=== PATIENT | male | born 1960 | race Caucasian/White ===

== ENCOUNTER → 2016-06-02 | Outpatient (CLI) | payer OTHER ==
[~2016-06-02] MED LIST: NAPR1TAB9 PO; TRAM-10 PO; ZOLP10TA PO
[2016-06-02 09:51] LABS: BASO ABS # 0.06 K/uL (0-0.2); COMPLETE YES; EOS % 5.8 %; HEMATOCRIT 41.7 % (42-52); IG% 0.2 %; LYMPH % 39.2 %; MEAN CELL VOLUME 86.7 fL (80-100); MEAN CORPUSCULAR HEMOGLOBIN 29.7 pg (25-34); MEAN CORPUSCULAR HGB CONC 34.3 g/dl (32-36); MEAN PLATELET VOLUME 10.6 fL (7.4-10.4); MONO % 6.8 %; PLATELET COUNT 194 K/uL (130-400); RED BLOOD COUNT 4.81 M/uL (4.7-6.1); WHITE BLOOD COUNT 5.87 K/uL (4.8-10.8)
[2016-06-02 10:21] LABS: BLOOD UREA NITROGEN 17 mg/dl (7-18); BUN/CREATININE RATIO 16.7 (10-20); CALCIUM 8.9 mg/dl (8.5-10.1); CARBON DIOXIDE 28 mmol/L (21-32); CHLORIDE 108 mmol/L (98-107); GLUCOSE 84 mg/dl (70-99); POTASSIUM 4.2 mmol/L (3.5-5.1); SODIUM 143 mmol/L (136-145)
== END | disposition home or self-care (01) ==
LOC: C.CPL 08:25
PROVIDERS: ATTEND Physical Medicine & Rehabilitation Sports Medicine
DX: Z01.810 Encounter for preprocedural cardiovascular examination (principal); Z01.812 Encounter for preprocedural laboratory examination; M24.022 Loose body in left elbow; M19.022 Primary osteoarthritis, left elbow

== ENCOUNTER → 2016-06-03 | Day surgery (SDC) | payer OTHER ==
[2016-06-02 11:22] VITALS: Ht 175.3 cm; Wt 95.5 kg
[~2016-06-03] VITALS: Ht 175.3 cm; Wt 95.5 kg
[~2016-06-03] MED LIST changes: +ATROPINE SULFATE 0.1 MG/ML 5ML SYR IV PRN; +BUPIVACAINE 0.5 % 5 MG/1 ML MPF 30ML VIAL ONE; +CEFAZOLIN 2000 MG/60 ML D5W IV SCH; +DEXAMETHASONE SOD INJ 4 MG/ML VIAL ONE; +EpHEDrine SULFATE 50MG/5ML SYR ONE; +EpHEDrine SULFATE INJ 50 MG/ML AMP IV PRN; +FENTANYL CITRATE INJ 50 MCG/1 ML 2 ML VIAL IV PRN; +FENTANYL CITRATE INJ 50 MCG/1 ML 2 ML VIAL ONE; +GLYCOPYRROLATE INJ 0.2 MG/ML VIAL ONE; +KETOROLAC TROMETHAMINE 30 MG/ML VIAL ONE; +LACTATED RINGER'S 1000ML 1,000 ML IV SCH; +LIDOCAINE HCL 2% 2 ML VIAL (20MG/ML) ONE; +MIDAZOLAM HCL 1 MG/ML 2ML VIAL ONE; +ONDANSETRON INJ 2 MG/ML 2 ML VIAL IV PRN; +ONDANSETRON INJ 2 MG/ML 2 ML VIAL ONE; +OXYCODONE/ACETAMINOPHEN 5-325 TAB PO PRN; +PROPOFOL IV EMULSION 10 MG/ML 20 ML VIAL IV ONE; +SODIUM CHLORIDE 0.9% 1000ML 1,000 ML IV SCH
--- NOTE | 2016-06-03 07:53 | History & Physical Bridge Note ---
H&P Re-Evaluation Bridge Note: I have examined the patient, reviewed the History & Physical and in the interval since the performance of the History & Physical I have noted the following changes of clinical significance: No changes noted
--- NOTE | 2016-06-03 07:55 | Discharge Instructions ---
Discharge Instructions Visit Reason for Visit: Left [place] Degnerative Joint Disease Discharge Discharge Diagnosis / Problem: same Discharge Goals Goal(s): Decrease discomfort, Improve function, Increase independence, Improve disease control Medications Stopped Medications Name(s): na Restart Stopped Medication(s): use all scripts as directed Activity Recommendations Activity Limitations: as noted below Lifting Limitations: until after follow-up appointment Exercise/Sports Limitations: until after follow-up appointment May Resume Sexual Activity: after follow-up appointment Shower/Bathe: keep incision dry Driving or Machine Use: no limitations Anesthesia DIET: * Resume previous diet. MEDICATIONS: * Please take your prescriptions as instructed at your pre-op appointment and/ or see medication discharge instructions listed above. * If concerns develop, call your physician's office at . SPECIAL CARE INSTRUCTIONS: * Ice/Elevate as instructed. * Keep dressing clean, dry, intact. * Your surgical extremity may be discolored due to prepping agents used on the skin. A bluish-green tint is a normal variant and should not cause alarm. Call your doctor at [phone] if: * Temperature above 101 degrees * Pain not relieved by pain medicine ordered * There is increased drainage or redness from any incision * You have any unanswered questions, problems or concerns. FOLLOW UP VISIT: * If not already scheduled, please call the office at to schedule a follow-up appointment. . Post Anesthesia Instructions: If you have had General Anesthesia or IV Sedation: * Do not drive today. * Resume driving when surgeon permits. * Do not make important decisions or sign legal documents today. * Call surgeon for: 1. Temperature elevations greater than 101 degrees F. 2. Uncontrollable pain. 3. Excessive bleeding. 4. Persistent nausea and vomiting. 5. Medication intolerance (nausea, vomiting or rash). * For nausea and vomiting use only clear liquids such as: tea, soda, bouillon until nausea subsides, then gradually increase diet as tolerated. * If you have any concerns or questions, call your surgeon's office. If physician is unavailable and it is an emergency, call 911 or go to the nearest emergency room. . Diet Recommendations Recommended Home Diet: resume previous diet Procedures Procedures Performed: arthrotomy debridement left elbow Pending Studies Studies pending at discharge: no Medical Emergencies . Who to Call and When: Medical Emergencies: If at any time you feel your situation is an emergency, please call 911 immediately. . Non-Emergent Contact Non-Emergency issues call your: Specialist Call Non-Emergent contact if: temperature is above 101.5 . . "Provider Documentation" section prepared by Taye Mckeon.
[2016-06-03] MEDS: HYDROmorphone INJ 1 MG/ML SYR IV PRN ×4 (10:25→10:51)
--- NOTE | 2016-06-03 10:33 | OPERATIVE REPORT ---
DATE OF OPERATION: 06/03/2016 PREOPERATIVE DIAGNOSIS: Left elbow degenerative joint disease. POSTOPERATIVE DIAGNOSIS: Left elbow same. PROCEDURE: Left elbow arthrotomy with debridement and loose body removal. SURGEON: Dr. Mckeon. FISCAL ASSISTANT: Ortega Salgado PA-C. HISTORY OF PRESENT ILLNESS: This 55-year-old white male presented to the office with complaints of left elbow loss of motion and pain with motion. He had tried conservative care measures without success. He elected to proceed with surgical intervention after being educated about potential risks and outcomes. Preoperative x-rays were obtained. DESCRIPTION OF PROCEDURE: The patient was taken to the operating room where he was given general anesthetic. He was prepped and draped in the usual sterile fashion. Please see Dr. Mckeon's operative report for specifics of the procedure. I was present for the entire case from initial patient positioning through final wound closure. Assistance was provided in tissue retraction, hemostasis, and final wound closure. The patient was taken to the recovery room in satisfactory condition. I attest to the content of the Intraoperative Record and any orders documented therein. Any exceptio ns are noted below.
[2016-06-03 11:16] VITALS: TEMP 36.4
--- NOTE | 2016-06-03 11:19 | OPERATIVE REPORT ---
DATE OF OPERATION: 06/03/2016 PREOPERATIVE DIAGNOSIS: Extensive periarticular osteophytes, osteoarthritis and loose bodies left elbow with flexion and extension contracture and supination and pronation contracture. POSTOPERATIVE DIAGNOSIS: Same. OPERATION PERFORMED: Extensive lateral exposure of the elbow with excision of marginal osteophytes anteriorly and posteriorly on the humerus on the capitellum and on the olecranon as well as removal of multiple loose bodies. SURGEON: Dr. Mckeon. ACCOUNTING MACHINE OPERATOR: Ortega Salgado PA-C. SECOND ACCOUNTING MACHINE OPERATOR: kimberly Hanson student. PERIOPERATIVE SITUATION: Medically cleared male with intractable elbow discomfort. At this point in time wants to proceed with surgical treatment based on x-ray findings of multiple loose bodies, periarticular osteophytes and loss of range of motion. OPERATION AND FINDINGS: PROCEDURE: The patient was properly identified, site verified, consent verified, 2 grams of Ancef confirmed as being given. The left upper extremity was examined revealing extension to -30, flexion to 105, pronation, supination 50/50. The arm was then prepped and draped in usual routine fashion. Tourniquet inflated to 250 mmHg and the extensile lateral approach to the elbow made. The layers were carefully dissected and the joint opened. There was an exuberant amount of joint fluid. This was all evacuated. Medially encountered was a loose body, which was removed. The capsule was opened down to the radial neck, but not distal to that and anteriorly dissected across and released off the anterior aspect of the humerus. A large osteophyte was there and then resected in multiple pieces. Care taken not to penetrate medially. Periarticular osteophytes were then excised along the radial capitellar joint, capitellum and off the olecranon capitellar and olecranon humeral fossa joint. All that was removed. There was 3 large loose bodies removed from the olecranon fossa as well. Once this was all done, the elbow range of motion was near 0, 125 degrees of flexion and near full pronation supination. The wound was then irrigated. A 2.9 JuggerKnot was then placed in the isometric point of the lateral epicondyle and the capsular ligamentous structures were repaired as 1 unit with double suture off the JuggerKnot 2.9 anchor. The superficial fascia was then closed with a running 0 Vicryl, the subcutaneous layer with 2-0 plain and the skin with brennan. Appropriate dressing applied and the patient transferred to recovery room in satisfactory condition having tolerated the procedure well. Estimated blood loss was 5 mL. Crystalloid was roughly 500 mL. Start aggressive range of motion. I attest to the content of the Intraoperative Record and any orders documented therein. Any exceptio ns are noted below.
[2016-06-03 12:06] VITALS: BP 132/81; PULSE 59; O2SAT 96
--- NOTE | 2016-06-03 12:14 | Anesthesia Progress Nt - [facility] ---
Anesthesia Post Op Note Date & Time Jun 03, 2016 at 12:14 Vital Signs Pain Intensity: 7 Vital Signs Past 12 Hours Date Time Temp Pulse Resp B/P Pulse Ox O2 Delivery O2 Flow Rate FiO2 06/03/16 12:06 59 16 132/81 96 Room Air 06/03/16 11:30 70 18 135/91 95 Room Air 06/03/16 11:19 86 14 06/03/16 11:19 90 14 93 06/03/16 11:18 135/104 06/03/16 11:16 36.4 55 12 140/94 99 Room Air 06/03/16 11:14 71 13 06/03/16 11:14 72 13 96 06/03/16 11:13 140/94 06/03/16 11:11 140/91 06/03/16 11:09 55 18 141/102 100 06/03/16 11:09 61 18 06/03/16 11:04 52 7 06/03/16 11:04 50 7 100 06/03/16 11:03 136/95 06/03/16 10:59 58 9 100 06/03/16 10:59 57 9 06/03/16 10:58 134/99 06/03/16 10:54 60 15 06/03/16 10:54 57 15 100 06/03/16 10:53 136/86 06/03/16 10:49 66 13 06/03/16 10:49 64 13 141/86 100 06/03/16 10:44 71 20 100 06/03/16 10:44 70 20 06/03/16 10:43 128/93 06/03/16 10:39 66 14 06/03/16 10:39 68 14 100 06/03/16 10:38 122/101 06/03/16 10:34 80 14 06/03/16 10:34 81 14 136/93 98 06/03/16 10:29 65 14 100 06/03/16 10:29 68 14 06/03/16 10:28 134/100 06/03/16 10:24 72 10 06/03/16 10:24 67 10 120/93 99 06/03/16 10:19 36.4 74 16 116/84 99 Diffusion Mask 6 06/03/16 10:19 70 15 135/79 06/03/16 10:19 15 06/03/16 07:40 36.4 73 18 130/103 96 Room Air Notes Mental Status: alert / awake / arousable, participated in evaluation Pt Amnestic to Procedure: Yes Nausea / Vomiting: adequately controlled Pain: adequately controlled, improving with treatment Airway Patency, RR, SpO2: stable & adequate BP & HR: stable & adequate Hydration State: stable & adequate Anesthetic Complications: no major complications apparent Patient stated he fells well enough and wants to go home. He was out of chair and ambulating without difficulty. They have been informed about proper use of his pain medications and will call with any questions or concerns.
== END | disposition home or self-care (01) ==
LOC: X.SURG 07:30
PROVIDERS: ATTEND Physical Medicine & Rehabilitation Sports Medicine
DX: M25.722 Osteophyte, left elbow (principal); M24.022 Loose body in left elbow; M19.022 Primary osteoarthritis, left elbow; Z98.890 Other specified postprocedural states

== ENCOUNTER → 2016-07-14 | Outpatient (CLI) | payer OTHER ==
[~2016-07-14] MED LIST changes: -ATROPINE SULFATE 0.1 MG/ML 5ML SYR IV PRN; -BUPIVACAINE 0.5 % 5 MG/1 ML MPF 30ML VIAL ONE; -CEFAZOLIN 2000 MG/60 ML D5W IV SCH; -DEXAMETHASONE SOD INJ 4 MG/ML VIAL ONE; -EpHEDrine SULFATE 50MG/5ML SYR ONE; -EpHEDrine SULFATE INJ 50 MG/ML AMP IV PRN; -FENTANYL CITRATE INJ 50 MCG/1 ML 2 ML VIAL IV PRN; -FENTANYL CITRATE INJ 50 MCG/1 ML 2 ML VIAL ONE; -GLYCOPYRROLATE INJ 0.2 MG/ML VIAL ONE; -KETOROLAC TROMETHAMINE 30 MG/ML VIAL ONE; -LACTATED RINGER'S 1000ML 1,000 ML IV SCH; -LIDOCAINE HCL 2% 2 ML VIAL (20MG/ML) ONE; -MIDAZOLAM HCL 1 MG/ML 2ML VIAL ONE; -NAPR1TAB9 PO; -ONDANSETRON INJ 2 MG/ML 2 ML VIAL IV PRN; -ONDANSETRON INJ 2 MG/ML 2 ML VIAL ONE; -OXYCODONE/ACETAMINOPHEN 5-325 TAB PO PRN; -PROPOFOL IV EMULSION 10 MG/ML 20 ML VIAL IV ONE; -SODIUM CHLORIDE 0.9% 1000ML 1,000 ML IV SCH; -TRAM-10 PO
== END | disposition home or self-care (01) ==
LOC: C.RDSM 07:14
PROVIDERS: ATTEND Physical Medicine & Rehabilitation Sports Medicine
DX: M24.022 Loose body in left elbow (principal); M19.022 Primary osteoarthritis, left elbow; Z09 Encounter for follow-up examination after completed treatment for conditions other than malignant neoplasm

== ENCOUNTER → 2016-12-09 | Outpatient (CLI) | payer OTHER ==
--- NOTE | 2016-12-09 11:26 | DIAGNOSTIC IMAGING REPORT ---
LEFT KNEE 4 OR MORE CLINICAL HISTORY: 56 years-old Male presenting with chronic left knee pain, no recent injury. TECHNIQUE: Bilateral frontal standing views of the knees and lateral, tunnel, and sunrise views of the left knee were obtained. COMPARISON: 01/14/2016. FINDINGS: Osteophytosis noted most prominently in the lateral compartment of the right knee. Mild joint space loss may be present in the medial compartment. Osteophytosis at the superior pole of the patella also noted. Joint space loss in the medial compartment of the left knee with minimal osteophytosis at the medial and lateral compartments. No significant subchondral sclerosis or cystic change is apparent radiographically. Overall the appearance of degenerative change in the medial compartment is not significantly different from the prior exam in 2016. Degenerative change also noted at the patellofemoral compartment with marginal osteophytes most pronounced laterally and superiorly. No acute fracture. Small knee joint effusion may be present. IMPRESSION: 1. Stable tricompartmental degenerative changes of the left knee most severe in the medial compartment, where there is joint space loss. 2. Less severe tricompartmental degenerative change of the right knee. Electronically signed by: Farzad Lira M.D. 12/09/2016 11:25 AM Dictated Date/Time: 12/09/2016 11:20 AM
== END | disposition home or self-care (01) ==
LOC: C.RDSM 10:52
PROVIDERS: ATTEND Physician Assistant
DX: M25.562 Pain in left knee (principal)